=== PATIENT | female | born 1955 | race Caucasian/White ===

== ENCOUNTER → 2017-07-18 | Outpatient (CLI) | payer BC ==
[~2017-07-18] MED LIST: LEVO75TA73 PO; MULT1CAP59 PO
--- NOTE | 2017-07-18 15:29 | RADIOLOGY IMAGING REPORT ---
FACILITY: [facility] [place] PATIENT NAME: Kylie Guerra : 1955 MR: [id number] V: [id number] EXAM DATE: ORDERING PHYSICIAN: ALISHA DOVER TECHNOLOGIST: Location: [facility] Patient: Kylie Guerra : 1955 Visit/Account:[id number] Date of Sevice: 07/18/2017 PELVIC HISTORY: Pelvic mass TECHNIQUE: Transabdominal and transvaginal ultrasound pelvis. COMPARISON: None. FINDINGS: Uterus: ; 11 cm length x 7.5 cm AP x 1.6 cm transverse. Myometrium: Heterogeneous. Endometrium: Not well seen due to a large heterogeneous mass centrally within the uterus is approxima tely 8.8 x 6.4 x 8.3 cm; Cervix: Grossly negative. Ovaries: Right - 1.9 x 1.1 x 1.5 cm Left - 3.3 x 1.1 x 3 m Blood flow is documented in each ovary by duplex Doppler ultrasound. Adnexa: Grossly unremarkable. Free pelvic fluid: None. IMPRESSION: There is a large heterogeneous mass centrally within the uterus as described above distorting the end ometrial cavity. This may represent a large fibroid although other solid masses are included in the differential diagnosis. The mass is so large it is difficult to determine whether this is of endomet rial or myometrial origin. If further diagnostic imaging is desired MR the pelvis with and without c ontrast may be helpful. Report Dictated By: Marilyn Cade MD at 07/18/2017 1:57 PM Report E-Signed By: Marilyn Cade MD at 07/18/2017 3:25 PM WSN:[email or web address]
== END ==
LOC: US 02:48
PROVIDERS: ATTEND Obstetrics & Gynecology
DX: N85.9 Noninflammatory disorder of uterus, unspecified (principal)
CPT/HCPCS: 76856

== ENCOUNTER 2017-08-08 02:48 | Inpatient (IN) | payer BC ==
[~2017-08-08] VITALS: Ht 162.6 cm; Wt 89.4 kg
[2017-08-08] VITALS (13 sets, daily range): BP systolic 97–136; BP diastolic 54–84
[~2017-08-08 02:48] MED LIST changes: +CHOL10005 PO; +ENOX40DI8 SQ; +MELA1TAB24 PO; +OMEG-11 PO
[2017-08-08] MEDS ORDERED: ENOXAPARIN 40 MG/0.4ML SYR SC ONE (06:00)
[2017-08-08] MEDS ORDERED: MIDAZOLAM 2 MG/2 ML VIAL IVP PRN (06:30)
[2017-08-08] MEDS ORDERED: NORMOSOL R SOLN(*) 1000 ML BAG 1,000 ML IV PRN (06:30)
[2017-08-08] MEDS ORDERED: PHENAZOPYRIDINE 200 MG TAB PO ONE (06:30)
[2017-08-08] MEDS ORDERED: FAMOTIDINE 20 MG TAB PO ONE (06:30)
[2017-08-08] MEDS ORDERED: LIDOCAINE/SOD BICARB 8.4% SYR ID ONE (06:30)
[2017-08-08] MEDS ORDERED: ceFAZolin(*) 1 GM VIAL 1 GM in NS(*) 0.9% 100 ML ADDVANT BAG 100 ML IV ONE (06:30)
[2017-08-08] MEDS ORDERED: BUPIV/EPI 0.25% 1:200,000 50ML INFIL ONE (06:52)
[2017-08-08] MEDS ORDERED: ROCURONIUM BROM 10 MG/ML 10 ML ONE (07:05)
[2017-08-08] MEDS ORDERED: ONDANSETRON 4 MG/2 ML VIAL ONE (07:05)
[2017-08-08] MEDS ORDERED: DEXAMETHASONE SOD 4 MG/ML VIAL ONE (07:05)
[2017-08-08] MEDS ORDERED: LIDOCAINE MPF 1% 5 ML VIAL ONE (07:05)
[2017-08-08] MEDS ORDERED: PROPOFOL EMUL(*) 10MG/ML 20 ML 20 ML ONE (07:05)
[2017-08-08] MEDS ORDERED: fentaNYL CITR 250 MCG/5 ML AMP ONE (07:05)
[2017-08-08] MEDS ORDERED: SUGAMMADEX SOD 200 MG/2 ML SDV ONE ×2 (07:05→08:57)
[2017-08-08] MEDS ORDERED: GLYCOPYRROLATE 0.2 MG/ML SDV ONE (07:30)
[2017-08-08] MEDS ORDERED: KETAMINE HCL 200 MG/20 ML MDV ONE (07:30)
[2017-08-08] MEDS ORDERED: HYDROmorphone HCL 2 MG/ML SDV ONE (08:16)
--- NOTE | 2017-08-08 10:15 | Post Operative Note ---
Operative Note - LOOM REPAIRER Operative Day Date: Aug 08, 2017 Time: 10:12 Physicians Surgeon: Kim [employer]venile [employer] Officer: Martin Anesthesia: GETA, Luz Diagnosis Pre-Op Diagnosis: Symptomatic uterine fibroid Post-Op Diagnosis: Same Procedure Findings: 9cm intramural myoma, 396 grams Procedure(s): ROBLES, BSO Specimen Removed:(Maybe N/A): Uterus, myoma, tubes, ovaries Fluids Fluids: IVF: 1600cc UOP: 250cc Estimated Blood Loss: 250cc ALISHA DOVER MD Aug 08, 2017 10:15
[2017-08-08] MEDS ORDERED: ONDANSETRON 4 MG/2 ML VIAL IV PRN (10:30)
[2017-08-08] MEDS ORDERED: ACETAMINOPHEN 325 MG TAB PO PRN (10:30)
[2017-08-08] MEDS ORDERED: HYDROmorphone PCA 6 MG/30 ML IV PRN (10:30)
[2017-08-08] MEDS ORDERED: METOCLOPRAMIDE 10 MG/2 ML SDV IV PRN (10:30)
[2017-08-08] MEDS ORDERED: MAGNESIUM HYDROXIDE* 30ML UDCP PO PRN (10:30)
[2017-08-08] MEDS ORDERED: fentaNYL CITR 100 MCG/2 ML AMP ONE (10:32)
[2017-08-08] MEDS ORDERED: PROMETHAZINE 25 MG/ML 1 ML AMP ONE (11:12)
[2017-08-08] MEDS ORDERED: KETOROLAC 30 MG/ML VIAL IVP SCH (12:00)
[2017-08-08] MEDS: DLR(*) 1000 ML BAG 1,000 ML IV PRN ×2 (14:09→19:49)
--- NOTE | 2017-08-08 15:00 | OB/GYN Progress Note ---
OB Subjective Progress Notes Subjective Pt is feeling well. Somewhat "loopy" but no pain issues. No nausea or vomiting. Tolerating very minimal po. OB Objective Physical Exam Vital Signs Date Time Temp Pulse Resp B/P (MAP) Pulse Ox O2 Delivery O2 Flow Rate FiO2 08/08/17 10:15 82 20 99 08/08/17 06:40 97.0 136/84 (101) Room Air Intake and Output 08/09/17 07:00 Intake Total 4000 ml Output Total 700 ml Balance 3300 ml Intake IV Total 2000 ml Other 2000 ml Output Urine Total 450 ml Estimated Blood Loss 250 ml General Appearance: Alert/Awake/No Acute Distress Neurological: No Gross deficits Eyes: Normal Extraocular Movement & Vison Cardiovascular: Normal Rhythm & Peripheral Pulses, Regular Rate and Rhythm Respiratory: No Respiratory Distress, Clear to Auscultation Abdomen: Soft, Non-Tender, Non-Distended Musculoskeletal: No Weakness/Pain Extremities: No Cyanosis,Clubbing or Edema Integumentary: Skin Intact without Lesions or Rash Psychological: Alert & Oriented X3, Appropriate Mood & Affect Assessment and Plan Problems: (1) Status post total abdominal hysterectomy and bilateral salpingo-oophorectomy Assessment & Plan: POD#0 s/p ROBLES/BSO. Doing well. Routine orders. ALISHA DOVER MD Aug 08, 2017 15:00
--- NOTE | 2017-08-08 15:21 | OPERATIVE REPORT 1 ---
EVENT DATE: August 08, 2017 SURGEON: Evelyn Alvarez MD ANESTHESIOLOGIST: Milton Luz MD ANESTHESIA: General endotracheal tube. OWNER/PHOTOGRAPHER: Lucian Salazar DO PREOPERATIVE DIAGNOSIS Symptomatic uterine fibroid. POSTOPERATIVE DIAGNOSIS Symptomatic uterine fibroid. PROCEDURE PERFORMED Total abdominal hysterectomy with bilateral salpingo-oophorectomy. FINDINGS A 9 cm intramural myoma weighing 396 g. SPECIMENS REMOVED Uterus, uterine myoma, bilateral fallopian tubes and ovaries. INTRAVENOUS FLUIDS 1600 mL URINE OUTPUT 250 mL ESTIMATED BLOOD LOSS 250 mL INDICATIONS FOR PROCEDURE This patient is a 61-year-old who presents with a longstanding history of a large uterine fibroid. The fibroid has remained the same size for the past three years; however, she has developed increasing symptoms. She reports urinary frequency and pelvic pressure. She would like to proceed with definitive surgery. We did discuss an attempt at a laparoscopic hysterectomy using the robotic da Jacquie system. She was consented for that as well as a total abdominal hysterectomy should this not be safe given that she has not had any vaginal deliveries and has had abdominal surgeries in the past. She, therefore, was admitted for the same. DESCRIPTION OF PROCEDURE The patient was properly identified and taken to the operating room. She was placed under general anesthesia, placed in the dorsal lithotomy position, and prepped and draped in the usual fashion for a laparoscopic-assisted vaginal procedure. Examination confirmed an enlarged uterus just below the umbilicus that appeared to be mobile; however, the vaginal tissue was quite atrophic and narrow, including the vaginal introitus. I was able to introduce a Graves speculum, but it was very difficult to open all the way. In an attempt to proceed the laparoscopic procedure, I was able to grasp the anterior lip of the cervix and serially dilate the cervix to 5 mm using Hegar dilators. The uterine manipulator was then introduced into the uterus, and the bulb was inflated. The colpotomy cup was attempted to be advanced to the cervix. However, despite multiple attempts, the cup was too large to fit inside the vagina due to a narrow introitus. Given how narrow this was and the difficulty with this small of a device, it was decided that even if a laparoscopic hysterectomy was achievable, removal of the uterus with a 9 cm fibroid through the vagina would be quite difficult and require a significant amount of morcellation, which was not the patient's preference. Therefore, I removed the uterine manipulator, placed a Valadez catheter, and transitioned to an open procedure. The patient was then placed in a more supine position. After an appropriate count was obtained of the instruments, an incision was planned over her prior Pfannenstiel incision. This was then made with a scalpel and carried down to the level of the rectus fascia. The fascia was then nicked in the midline, and the incision was extended bilaterally using Chun scissors. The rectus muscle was able to be dissected from the rectus fascia, although there were a significant amount of adhesions in these tissues. These planes were very difficult to identify. This was dissected up to the level of the umbilicus. The same procedure was performed down to the pubic bone. The rectus fascia was then in the midline, and there were a significant amount of adhesions of the omentum to the anterior abdominal wall. Adhesiolysis with a combination of blunt and cautery was then achieved in order to allow visualization of the pelvis and the lower abdomen. Once this was accomplished, the uterus was able to be mobilized, and there were no significant adhesions around the uterus, fallopian tubes, or ovaries. The bowel was then packed away and retracted using a Bookwalter retractor. Once adequate visualization was achieved of the pelvis, it was clear that this myoma was quite large and was going to interfere with the ability to perform an abdominal hysterectomy. Prior to removing the myoma, the uterus was placed on tension after placing large Nell clamps across the uterine cornua. The patient's left round ligament was then divided using cautery, allowing the broad ligament to be opened. The anterior leaflet of the broad ligament was then transected downwards using the cautery and then anteriorly to mobilize the fallopian tube and identify the infundibulopelvic ligament. Once the IP ligament was identified, a window was able to be made through the posterior aspect of the peritoneum in order to isolate the IP ligament. This was then clamped times two and cut. The IP ligament was then tied off and noted to be hemostatic. The pedicle proximal to the ovary was then tied to the Nell clamp that was used for the uterine cornu. The same procedure was performed on the patient's right side after identifying the IP ligament, transecting it, and suture ligating. Once this was achieved, the broad ligament on the patient's right side was brought down; however, some of the tissue of the uterus started to tear, and as this began to bleed, our visualization decreased. It was then determined that the myoma would need to be removed to improve access and visualization. Therefore, uterine serosa was transected with electrocautery. A good tissue plane between along the surface of the myoma was identified. Using blunt dissection, this myoma was completely removed and was measured to be 9 cm in diameter. This was passed off the table and sent to pathology. The uterine incision was then reapproximated to control the bleeding using an 0 Vicryl suture. Once this was achieved, visualization was excellent, and there was minimal bleeding coming from the incision from where the myoma was removed. The anterior peritoneum was then able to be transected off the lower uterine segment and the cervix in order to develop the bladder flap. Once the bladder was brought down completely, the uterine arteries were clamped on either side, cut, and suture ligated. An additional straight clamp was utilized on either side to transect the rest of the broad ligament off of the uterus down to the level of the cervix. Once this was achieved, two clamps were used, one on either side, to clamp underneath the cervix, and using Tanvir scissors, the entire uterus was transected and passed off the table. The vaginal cuff was then reapproximated, working from bilateral apices to the midline using 0 Vicryl suture. These were tied down. Copious irrigation was then performed, and hemostasis was assured. Examination of the bladder flap also revealed hemostasis. The IP ligaments were investigated and noted to be hemostatic. The lap sponges that were utilized to retract the bowel were removed, and a lap count was correct at this time. The peritoneum was then reapproximated using a 3-0 Monocryl, followed by reapproximation of the rectus muscle. One [id number] was utilized in the muscle wall in order to achieve hemostasis. Copious irrigation was then performed of the muscle. The rectus fascia was then reapproximated using 0 PDS looped suture, working from apex to the next. Copious irrigation of the subcutaneous tissue was performed. She had approximately 6 cm of subcutaneous tissue; therefore, two layers of 3-0 Monocryl were utilized to reapproximate this tissue. The skin was then closed with INSORB estephanie, and a Primapore dressing was placed, followed by a pressure dressing. The patient was able to tolerate this procedure well and recovered in the post- anesthesia care unit. SCOTT
[2017-08-08] MEDS: KETOROLAC 30 MG/ML VIAL IVP SCH (19:49)
[2017-08-08] MEDS: DOCUSATE CALCIUM 240 MG CAP PO SCH (21:38)
[2017-08-08] MEDS: FAMOTIDINE 20 MG TAB PO SCH (21:39)
[2017-08-09] MEDS: SIMETHICONE 80 MG CHEW CHEW PRN ×4 (01:23→20:46)
[2017-08-09] MEDS: KETOROLAC 30 MG/ML VIAL IVP SCH (01:24)
[2017-08-09 06:15] LABS: PLATELET COUNT, AUTOMATED 175 K/uL (150-450)
[2017-08-09 07:20] VITALS: BP 117/62
[2017-08-09] MEDS ORDERED: OXYC-865 PO (08:15)
[2017-08-09] MEDS ORDERED: IBUP800T37 PO (08:15)
--- NOTE | 2017-08-09 08:17 | OB/GYN Progress Note ---
OB Subjective Progress Notes Subjective Doing well. Pain controlled with oral medications. Tolerating regular diet. Ambulating. Net yet voiding, beavers just removed. Minimal vaginal bleeding. No chest pain, shortness of breath or dizziness. OB Objective Physical Exam Vital Signs Date Time Temp Pulse Resp B/P (MAP) Pulse Ox O2 Delivery O2 Flow Rate FiO2 08/09/17 06:05 93 08/09/17 06:05 78 16 Room Air 08/09/17 03:00 0.5 08/08/17 19:45 98.7 105/54 (71) General Appearance: Alert/Awake/No Acute Distress Neurological: No Gross deficits Eyes: Normal Extraocular Movement & Vison Cardiovascular: Normal Rhythm & Peripheral Pulses, Regular Rate and Rhythm Respiratory: No Respiratory Distress, Clear to Auscultation Abdomen: Soft, Non-Tender, Non-Distended Incision: Clean, Dry, Intact Musculoskeletal: No Weakness/Pain Extremities: No Cyanosis,Clubbing or Edema Integumentary: Skin Intact without Lesions or Rash Psychological: Alert & Oriented X3, Appropriate Mood & Affect Result Diagram: 08/09/17 0602 Assessment and Plan Problems: (1) Status post total abdominal hysterectomy and bilateral salpingo-oophorectomy Assessment & Plan: POD#1 s/p ROBLES/BSO. Doing very well. Considering discharge today, but will wait for this afternoon to see. Otherwise, d/c tomorrow. ALISHA DOVER MD Aug 09, 2017 08:17
[2017-08-09 09:09] VITALS: Ht 162.6 cm; Wt 89.4 kg
[2017-08-09] MEDS: DOCUSATE CALCIUM 240 MG CAP PO SCH ×2 (09:30→20:46)
[2017-08-09] MEDS: IBUPROFEN 800 MG TAB PO PRN ×2 (09:30→20:46)
[2017-08-09] MEDS: FAMOTIDINE 20 MG TAB PO SCH ×2 (09:30→20:46)
[2017-08-09] MEDS: ENOXAPARIN 40 MG/0.4ML SYR SC SCH (09:30)
[2017-08-09 11:30] VITALS: BP 110/62
[2017-08-09 15:30] VITALS: BP 118/73
[2017-08-09 19:58] VITALS: BP 115/68
[2017-08-10 03:24] VITALS: BP 120/98
[2017-08-10 07:15] VITALS: BP 141/77
--- NOTE | 2017-08-10 08:05 | OB/GYN Progress Note ---
OB Subjective Progress Notes Subjective Doing well. Pain controlled with oral medications. Tolerating regular diet. Ambulating. Voiding, concerned since she voided every hour last night. No dysuria or blood in urine. Minimal vaginal bleeding. No chest pain, shortness of breath or dizziness. OB Objective Physical Exam Vital Signs Date Time Temp Pulse Resp B/P (MAP) Pulse Ox O2 Delivery O2 Flow Rate FiO2 08/10/17 03:24 98.2 58 12 120/98 (105) 89 Room Air 08/09/17 03:00 0.5 General Appearance: Alert/Awake/No Acute Distress Neurological: No Gross deficits Eyes: Normal Extraocular Movement & Vison Cardiovascular: Normal Rhythm & Peripheral Pulses, Regular Rate and Rhythm Respiratory: No Respiratory Distress, Clear to Auscultation Abdomen: Soft, Non-Tender, Non-Distended Incision: Clean, Dry, Intact Musculoskeletal: No Weakness/Pain Extremities: No Cyanosis,Clubbing or Edema Integumentary: Skin Intact without Lesions or Rash Psychological: Alert & Oriented X3, Appropriate Mood & Affect Result Diagram: 08/09/17 0602 Assessment and Plan Problems: (1) Status post total abdominal hysterectomy and bilateral salpingo-oophorectomy Assessment & Plan: POD#2. Meeting milestones. Desires discharge to home today. Discussed routine postoperative expectations. Questions answered. Follow up in clinic in 1-2wks for postop check. ALISHA DOVER MD Aug 10, 2017 08:05
--- NOTE | 2017-08-10 08:06 | OB/GYN Discharge Summary ---
Discharge Summary Reason for Hosp/Final Diag: (1) Status post total abdominal hysterectomy and bilateral salpingo-oophorectomy Hospital Course & Plan: POD#2. Meeting milestones. Desires discharge to home today. Discussed routine postoperative expectations. Questions answered. Follow up in clinic in 1-2wks for postop check. Lates Vital Signs Vital Signs Date Time Temp Pulse Resp B/P (MAP) Pulse Ox O2 Delivery O2 Flow Rate FiO2 08/10/17 03:24 98.2 58 12 120/98 (105) 89 Room Air 08/09/17 03:00 0.5 Weight (Pounds): 197 Result Diagram: 08/09/17 0602 Condition: Improved Discharge: Home, Self Detention Meds Active Scripts Oxycodone Hcl/Acetaminophen (PERCOCET 5-325 MG TABLET) 1 Each Tablet, 1-2 TAB PO Q4H Y for pain, #30 TAB 0 Refills Prov:ALISHA ALVAREZ MD 08/09/17 Enoxaparin Sodium (LOVENOX) 40 Mg/0.4 Ml Disp.syrin, 40 MG SQ DAILY for 14 Days , #14 SYR 0 Refills TO START AFTER DISCHARGE FROM HOSPITAL AFTER SURGERY Prov:ALISHA ALVAREZ MD 08/06/17 Reported Medications Melatonin/Pyridoxine Hcl (B6) (MELATONIN 1 MG TABLET) 1 Each Tablet, 1 EACH PO 08/03/17 Cholecalciferol (Vitamin D3) (VITAMIN D3) 1,000 Unit Tablet, 1000 UNIT PO, TAB 07/31/17 [place]-3 Fatty Acids/Fish Oil (FISH OIL 1,000 MG CAPSULE) 1 Each Capsule, 1 EACH PO, CAPSULE 07/31/17 Multivitamin (MULTIVITAMINS) 1 Each Capsule, 1 EACH PO, CAPSULE 07/19/17 Levothyroxine Sodium (LEVOTHYROXINE SODIUM) 75 Mcg Tablet, 88 MCG PO QDAY, #1 TAB 07/19/17 Follow up Referrals: [facility] - 08/21/17 @ [facility] [place] with Alisha Alvarez Md Discharge Diet: As Tolerates Discharge Activity: No Heavy Lifting > 10lb, Pelvic Rest ALISHA ALVAREZ MD Aug 10, 2017 08:06
[2017-08-10] MEDS: FAMOTIDINE 20 MG TAB PO SCH (09:00)
[2017-08-10] MEDS ORDERED: INFLUENZA VIRUS VAC 0.5 ML SYR IM ONLY ONE (09:00)
[2017-08-10] MEDS: DOCUSATE CALCIUM 240 MG CAP PO SCH (09:02)
[2017-08-10] MEDS: IBUPROFEN 800 MG TAB PO PRN (09:02)
[2017-08-10] MEDS: ENOXAPARIN 40 MG/0.4ML SYR SC SCH (09:04)
== END 2017-08-10 11:40 | disposition home or self-care (01) | DRG 743 ==
LOC: OR 02:48 → PED 12:05
PROVIDERS: ADMIT Obstetrics & Gynecology; ATTEND Obstetrics & Gynecology
PROC: 0UT70ZZ Resection of Bilateral Fallopian Tubes, Open Approach (ICD-10-PCS; 2017-08-08)
PROC: 0UT20ZZ Resection of Bilateral Ovaries, Open Approach (ICD-10-PCS; 2017-08-08)
PROC: 0UTC0ZZ Resection of Cervix, Open Approach (ICD-10-PCS; 2017-08-08)
PROC: 0UB90ZZ Excision of Uterus, Open Approach (ICD-10-PCS; 2017-08-08)
PROC: 0DNU0ZZ Release Omentum, Open Approach (ICD-10-PCS; 2017-08-08)
PROC: 0UJD4ZZ Inspection of Uterus and Cervix, Percutaneous Endoscopic Approach (ICD-10-PCS; 2017-08-08)
PROC: 8E0W0CZ Robotic Assisted Procedure of Trunk Region, Open Approach (ICD-10-PCS; 2017-08-08)
PROC: 0UT90ZZ Resection of Uterus, Open Approach (ICD-10-PCS; principal; 2017-08-08 07:25)
DX: D25.1 Intramural leiomyoma of uterus (principal); K66.0 Peritoneal adhesions (postprocedural) (postinfection); J84.10 Pulmonary fibrosis, unspecified; E03.9 Hypothyroidism, unspecified; Z86.711 Personal history of pulmonary embolism; Z90.49 Acquired absence of other specified parts of digestive tract; Z96.653 Presence of artificial knee joint, bilateral; Z87.891 Personal history of nicotine dependence; Z99.81 Dependence on supplemental oxygen; Z88.2 Allergy status to sulfonamides
CPT/HCPCS: 36415; 85025; 88307; J0690; J1100; J1170; J1650; J1885; J2001; J2250; J2405; J2550; J2704; J3010; J3490; J7050

== ENCOUNTER → 2018-06-05 | Outpatient (CLI) | payer BC ==
[2017-08-09 09:09] VITALS: BMI 33.8
[~2018-06-05] MED LIST changes: +CHOL500025 PO; +IBUP800T37 PO; +LEVO88TA45 PO; +MELA3TAB45 PO; +OXYC-865 PO
--- NOTE | 2018-06-05 18:05 | RADIOLOGY IMAGING REPORT ---
FACILITY: [facility] [place] PATIENT NAME: LASHAUN AMADOR : [id number] MR: [id number] V: [id number] EXAM DATE: [id number] ORDERING PHYSICIAN: VOLODYMYR ARMENTA TECHNOLOGIST: Ivette Sullivan PROCEDURE:BILATERAL DIGITAL SCREENING MAMMOGRAM WITH CAD ASSISTED INTERPRETATION & 3D TOMOSYNTHESIS COMPARISON:Prior mammograms 12/28/2016 back to 09/04/2014. Family history: Sister in her 60's and mother in her 70's. INDICATIONS:Screening FINDINGS: There are no mass lesions, architectural distortions, or any clustering of suspicious microcalcifications. When compared to the previous study the focal asymmetry in the Right breast is no longer visualized. There is a biopsy clip in that area representing successful biopsy. When compared to the previous study there has been no other additional change. No significant change when compared to the previous study. DIAGNOSTIC CATEGORY 1--NEGATIVE. RECOMMENDATIONS: ROUTINE MAMMOGRAM AND CLINICAL EVALUATION. IMPRESSION: BIRADS 1: Negative. Dictated by: Napoleon Gibson M.D. on 06/05/2018 at 13:38 Transcribed by: STEPHANY on 06/05/2018 at 13:49 Approved by: Napoleon Gibson M.D. on 06/05/2018 at 18:04 [facility]
== END ==
LOC: MAMO 01:30
PROVIDERS: ATTEND Emergency Medicine
DX: Z12.31 Encounter for screening mammogram for malignant neoplasm of breast (principal)
CPT/HCPCS: 77063; 77067